=== PATIENT | male | born 1995 | race Caucasian/White ===

== ENCOUNTER → 2019-10-24 | Outpatient (REF) | payer BC ==
[2019-10-24 16:25] LABS: INFLUENZA A AMPLIFICATION NEGATIVE (NEGATIVE); INFLUENZA B AMPLIFICATION NEGATIVE (NEGATIVE)
== END ==
LOC: M LAB REF 15:25
PROVIDERS: ATTEND Physician Assistant
DX: J11.1 Influenza due to unidentified influenza virus with other respiratory manifestations (principal)

== ENCOUNTER → 2022-07-06 | Outpatient (REF) | payer BC | LOC: M SMT 12:56 | PROVIDERS: ATTEND Urology | DX: Z30.2 Encounter for sterilization (principal) ==

== ENCOUNTER → 2022-10-03 | Outpatient (REF) | payer BC ==
[2022-10-03 10:58] LABS: SEMEN APPEARANCE OPAQUE (OPAQUE); SEMEN VISCOSITY LIQUID (LIQUID); SEMEN VOLUME 4.5 ml (2.0-5.0); WBC CONCENTRATION <=1 M/ml (<=1 M/ml)
== END ==
LOC: M SMT 10:42
PROVIDERS: ATTEND Urology
DX: Z30.2 Encounter for sterilization (principal)